=== PATIENT | female | born 1985 | race Caucasian/White ===

== ENCOUNTER 2017-01-11 14:12 | Emergency (ER) | payer OTHER ==
[~2017-01-11] VITALS: Ht 149.9 cm; Wt 58.0 kg
[~2017-01-11 14:12] MED LIST: ALBUAER INH; ALBUAER2 INH
[2017-01-11 14:15] VITALS: TEMP 36.8; Ht 149.9 cm; Wt 58.0 kg
[2017-01-11] MEDS ORDERED: KETOROLAC TROMETHAMINE 60 MG/2 ML VIAL IM STA (14:29)
--- NOTE | 2017-01-11 14:35 | EMERGENCY ROOM VISIT NOTE ---
History First contact with patient: 14:20 Chief Complaint: BACK PAIN Stated Complaint: SEVERE BACK PAIN History of Present Illness The patient is a 31 year old female who presents to the Emergency Room with complaints of severe back pain x "a couple days". The patient states a few days ago, she again experiencing dysuria, urinary hesitancy, and blood. She states she is also experiencing severe back pain, worse on the right side and radiating into her abdomen. The patient does report a history of UTIs with similar pain, however she is concerned that she could have a kidney stone. She states she is noticing some blood in her urine. The patient denies any recent injury. The pain makes it difficult for her to get comfortable. She has been taking 800 mg ibuprofen every 6 hours and Tylenol every 4 hours, with no relief of her symptoms. The patient states she has not had any fever, nausea, vomiting , diarrhea, or constipation. She has been experiencing chills. The patient's last menstrual period was 2 months ago. She states she had a D&C and ablation completed in October. The patient states the pain began spontaneously, and seems to be worse at night. She is having difficulty getting comfortable. Review of Systems A complete 10 point review of systems was reviewed with the patient with pertinent positives and negatives as per history of present illness. All else were negative. Social History Smoking Status: Current Every Day Smoker Smokeless Tobacco Use: No Alcohol Use: none Drug Use: none Housing Status: lives with family Current/Historical Medications Scheduled Albuterol Hfa (Ventolin Hfa), 2-4 PUFFS INH Q6H Sulfa/Trimethoprim (Bactrim Ds 800MG/160MG), 1 TAB PO BID Scheduled PRN Albuterol Sulfate (Proventil Hfa), 2 PUFFS INH Q4 PRN for SOB/Wheezing Allergies Flexeril, penicillin, tramadol Physical Exam Vital Signs Date Time Temp Pulse Resp B/P (MAP) Pulse Ox O2 Delivery O2 Flow Rate FiO2 01/11/17 15:53 80 16 121/69 99 Room Air 01/11/17 14:15 36.8 86 18 146/95 98 Room Air Physical Exam VITALS: Vitals are noted on the nurse's note and reviewed by myself. Vital signs stable. GENERAL: This is a 31-year-old white female, in no acute distress, nondiaphoretic, well-developed well-nourished. SKIN: The skin was without rashes, erythema, edema, or bruising. There is no tenting of the skin. Capillary reflex less than 2 seconds. HEAD: Normocephalic atraumatic. EARS: External auditory canals clear, tympanic membranes pearly hays without erythema or effusion bilaterally. EYES: Pupils equal round and reactive to light and accommodation. Conjunctivae without injection, sclerae without icterus. Extraocular movements intact. NOSE: Patent, turbinates without inflammation or discharge. No sinus tenderness. MOUTH: Mucous membranes moist. Tonsils are not enlarged. Pharynx without erythema or exudate. Uvula midline. Airway patent. Tongue does not deviate. NECK: Supple without nuchal rigidity. No lymphadenopathy. No thyromegaly. Cervical spine is nontender. No JVD. HEART: Regular rate and rhythm without murmurs gallops or rubs. LUNGS: Clear to auscultation bilaterally without wheezes, rales or rhonchi. No dullness to percussion. No retractions or accessory muscle use. ABDOMEN: Positive bowel sounds x 4. Normal tympanic percussion. Tenderness noted in the right lower quadrant. Otherwise, the abdomen was soft, without masses or organomegaly. Wallace sign negative. No guarding or rebound tenderness. Positive CVA tenderness on the right. MUSCULOSKELETAL: No muscle atrophy, erythema, or edema noted. Full range of motion without joint tenderness in all extremities. No tenderness to palpation. Normal gait. Strength 5/5 throughout. Negative straight leg raise. NEURO: Patient was alert and oriented to person place and time. Normal sensation to light and sharp touch. Deep tendon reflexes 2+ throughout. No focal neurological deficits. Medical Decision & Procedures ER Provider Diagnostic Interpretation: Urinalysis was positive for trace blood, +1 protein. +1 WBC. There were no nitrites or ketones. Urine test was negative. RADIOLOGY: KUB CLINICAL HISTORY: Right flank pain. COMPARISON STUDY: None. FINDINGS: Pelvic calcifications likely reflect phleboliths. No urinary calculi are identified. Bowel gas pattern is normal. IMPRESSION: 1. No evidence for a bowel obstruction. 2. No urinary calculi identified. Electronically signed by: Bro Barajas M.D. 01/11/2017 3:34 PM Dictated Date/Time: 01/11/2017 3:33 PM ABD/PELVIS WITHOUT FOR STONE CLINICAL HISTORY: 31 years-old Female presenting with right flank pain. TECHNIQUE: Multidetector CT of the abdomen and pelvis was performed without the use of intravenous contrast. IV contrast: None. A dose lowering technique was used consistent with the principles of ALARA (as low as reasonably achievable). COMPARISON: None. CT DOSE (mGy.cm): The estimated cumulative dose is 413.65 mGycm. FINDINGS: Special Educator topogram: Unremarkable. Lung bases: Minimal dependent changes likely atelectasis. Normal heart size. Trace pericardial effusion. No pleural effusion. Liver: Normal morphology. Normal density. Biliary: No gross biliary ductal dilatation allowing for noncontrast technique. Normal gallbladder. Pancreas: Normal noncontrast appearance. Spleen: Normal noncontrast appearance. Adrenal glands: Normal noncontrast appearance. Kidneys and ureters: Normal noncontrast appearance. No nephrolithiasis. No hydronephrosis. Normal ureters. Bladder: Mild circumferential bladder wall thickening. Pelvic organs: Normal noncontrast appearance. Bowel: Normal appendix. No bowel obstruction. Peritoneal cavity: No free fluid or intraperitoneal gas. Minimal retroperitoneal infiltration in the periaortic region, possibly numerous tiny lymph nodes. Lymph nodes: No gross lymphadenopathy allowing for noncontrast technique. Vasculature: Normal noncontrast appearance. Few left pelvic phleboliths. Abdominal wall: Normal. Musculoskeletal: Normal. IMPRESSION: 1. Mild circumference of bladder wall thickening suggest cystitis. Correlate with urinalysis. 2. No nephrolithiasis or hydronephrosis. Electronically signed by: Michael Mc M.D. 01/11/2017 4:25 PM Dictated Date/Time: 01/11/2017 4:17 PM Laboratory Results Test 01/11/17 14:58 Urine Color YELLOW Urine Appearance CLEAR (CLEAR) Urine pH 7.0 (4.5-7.5) Urine Specific [place] 1.010 (1.000-1.030) Urine Protein NEG (NEG) Urine Glucose (UA) NEG (NEG) Urine Ketones NEG (NEG) Urine Occult Blood NEG (NEG) Urine Nitrite NEG (NEG) Urine Bilirubin NEG (NEG) Urine Urobilinogen NEG (NEG) Urine Leukocyte Esterase TRACE (NEG) Urine WBC (Auto) 1-5 /hpf (0-5) Urine RBC (Auto) 0-4 /hpf (0-4) Urine Hyaline Casts (Auto) 0 /lpf (0-5) Urine Epithelial Cells (Auto) >30 /lpf (0-5) Urine Bacteria (Auto) NEG (NEG) Medications Administered Medications (Trade) Dose Ordered Sig/Duke Route Start Time Stop Time Status Last Admin Dose Admin Ketorolac Tromethamine (Toradol Inj) 60 mg NOW STAT IM 01/11/17 14:29 01/11/17 14:31 DC 01/11/17 14:53 60 MG Medical Decision The patient was seen and evaluated as above. She presents today with severe, colicky back pain. She states this is been ongoing for a few days. The patient does have a history of urinary tract infection, however has not experienced pain this severe. She is concerned for possible stone. She has been taking Tylenol and ibuprofen without relief of her pain. The patient is also experiencing dysuria, urinary hesitancy, and hematuria. She is afebrile, without nausea or vomiting. She states the pain begins in the right flank and radiates into the right lower quadrant of the abdomen. Urinalysis was positive for hematuria and white blood cells. Urine test was negative. KUB was negative for stone. Because the patient does not have a history of stones, we did elect to perform a CT scan to look for stone. CT scan was negative for stone, but did show suspicion for acute cystitis. While in the ED, the patient was given IM Toradol. She did appear much more comfortable after this medication. She states it did help her pain, but not very much. I discussed the findings with the patient at bedside. Prior to discharge, she did request several times for pain medication. [facility] the [facility] narcotic fill history, and did no that she recently had a prescription for Percocet which was written on 01/05/2017 for 14 days. When asked about this, the patient states "that does not be me because I did not have any pain medicine." The patient states she does not live locally and she lives in [place], so she does not believe that the prescription was written for her. I did verify the name and date of , and did look through the patient's records to verify her previous addresses. One address didn't match up , however no other addresses in [facility] were the same. I did print off the report and took it to the patient at bedside. I asked her to verify any other addresses or prescriptions, and she states that this does appear to be her. When asked again, the patient states she did recently receive a prescription for Percocet. She states before that, she had gotten a prescription for cough medication due to bronchitis. On the first of this month, she states she got a prescription for Percocet due to surgery she had. I advised the patient at this time that we will not give her any pain medication, and she states "are you sure you can just give me something for tonight". I told her no, and offered her a prescription for parity. The patient states she has a prescription at home, and she will take what she has at home. I discussed with her proper treatment for urinary tract infection with antibiotics. Discharge instructions were reviewed and the patient was discharged home in good condition. Differential diagnosis: nephrolithiasis, musculoskeletal pain, hydronephrosis, pyelonephritis, ovarian cyst, ovarian torsion, UTI, malignancy, and others. The patient did leave without discharge instructions after she was told she was not getting narcotics and she was to wait for discharge instructions by [facility] Drug Monitoring Program Search Results: patient reviewed within database, see additional documentation Drug Monitoring Findings: Please see MDM. The patient has had 23 prescriptions from 8 prescribers, filled at 5 different pharmacies. She has paid privately 7 times. She also has medicaid and commercial insurances listed. There are 5 different addresses on PDMP, none of which match the address we have on file here in the ED for the patient, however, one matches an address given a few years ago. I did ask the patient directly if the addresses are hers, and she states some of them are. It does appear that she has been using all 5 addresses for prescriptions, based on PDMP ID within the past year. When asked about the findings, the patient is hesitant to admit that this is her, and states she does not know what some of the prescriptions were for. Medication Reconcilliation Current Medication List: was personally reviewed by me Blood Pressure Screening Patient's blood pressure: Elevated blood pressure Blood pressure disposition: Elevated BP felt to be situational Impression Primary Impression: Acute cystitis Departure Information Dispostion Home / Self-Care Condition GOOD Prescriptions Sulfa/Trimethoprim (Bactrim Ds 800MG/160MG) Tab 1 TAB PO BID for 7 Days, #14 TAB Prov: Wilfred, Kina Arellano PA-C 01/11/17 Referrals No Doctor, Assigned (PCP) Patient Instructions ED UTI Cystitis Female, My [facility] Additional Instructions You have been treated in the Emergency Department for a Urinary Tract Infection (UTI). You have been prescribed Bactrim to be taken twice daily for 7 days. This is an antibiotic. All antibiotics have the potential to cause diarrhea. Stop this medication and contact a medical provider if you were to develop any significant adverse side effects including: wheezing, shortness of breath, passing out, vomiting, or a diffuse rash. Always take antibiotics as directed and COMPLETE the ENTIRE course regardless of the improvement of your symptoms. You can take the Pyridium you have at home to be taken as prescribed. This medicine will help with the urinary symptoms that you have been experiencing. Be aware that Pyridium may turn your urine a red-orange or brown color. This effect is harmless. You may use the narcotic pain medication you have at home. As discussed, you were recently given a prescription for 14 days worth of Percocet on 01/05/17. As discussed, this should still be active, so I will not prescribe you more narcotics. Drink plenty of water and stay well hydrated. You may consider cranberry juice, as this may help. As with any trip to the Emergency Department, you should follow-up with your Primary Care Provider from today's visit. Return to the emergency department if your symptoms persist despite treatment plan outlined above or if the following symptoms occur: increased fevers, chills , low back pain, nausea/vomiting, or blood in your urine. Problem Qualifiers Primary Impression: Acute cystitis Hematuria presence: with hematuria Qualified Codes: N30.01 - Acute cystitis with hematuria
[2017-01-11 15:27] LABS: URINE APPEARANCE CLEAR (CLEAR); URINE BILIRUBIN NEG (NEG); URINE COLOR YELLOW; URINE EPITHELIAL CELL AUTO >30 /lpf (0-5); URINE NITRITE NEG (NEG); UROBILINOGEN NEG (NEG); ZZUR CULT IF INDIC CLEAN CATCH NO
[2017-01-11 15:30] LABS: MANUAL MICROSCOPIC REQUIRED? NO; REVIEW REQ? NO
--- NOTE | 2017-01-11 15:35 | DIAGNOSTIC IMAGING REPORT ---
KUB CLINICAL HISTORY: Right flank pain. COMPARISON STUDY: None. FINDINGS: Pelvic calcifications likely reflect phleboliths. No urinary calculi are identified. Bowel gas pattern is normal. IMPRESSION: 1. No evidence for a bowel obstruction. 2. No urinary calculi identified. Electronically signed by: Bro Barajas M.D. 01/11/2017 3:34 PM Dictated Date/Time: 01/11/2017 3:33 PM
[2017-01-11] MEDS ORDERED: VNTHFA/IN INH (15:50)
[2017-01-11] MEDS ORDERED: ALBUAER INH (15:50)
[2017-01-11 15:53] VITALS: BP 121/69; PULSE 80; O2SAT 99
--- NOTE | 2017-01-11 16:26 | DIAGNOSTIC IMAGING REPORT ---
ABD/PELVIS WITHOUT FOR STONE CLINICAL HISTORY: 31 years-old Female presenting with right flank pain. TECHNIQUE: Multidetector CT of the abdomen and pelvis was performed without the use of intravenous contrast. IV contrast: None. A dose lowering technique was used consistent with the principles of ALARA (as low as reasonably achievable). COMPARISON: None. CT DOSE (mGy.cm): The estimated cumulative dose is 413.65 mGycm. FINDINGS: Neonatal Doctor topogram: Unremarkable. Lung bases: Minimal dependent changes likely atelectasis. Normal heart size. Trace pericardial effusion. No pleural effusion. Liver: Normal morphology. Normal density. Biliary: No gross biliary ductal dilatation allowing for noncontrast technique. Normal gallbladder. Pancreas: Normal noncontrast appearance. Spleen: Normal noncontrast appearance. Adrenal glands: Normal noncontrast appearance. Kidneys and ureters: Normal noncontrast appearance. No nephrolithiasis. No hydronephrosis. Normal ureters. Bladder: Mild circumferential bladder wall thickening. Pelvic organs: Normal noncontrast appearance. Bowel: Normal appendix. No bowel obstruction. Peritoneal cavity: No free fluid or intraperitoneal gas. Minimal retroperitoneal infiltration in the periaortic region, possibly numerous tiny lymph nodes. Lymph nodes: No gross lymphadenopathy allowing for noncontrast technique. Vasculature: Normal noncontrast appearance. Few left pelvic phleboliths. Abdominal wall: Normal. Musculoskeletal: Normal. IMPRESSION: 1. Mild circumference of bladder wall thickening suggest cystitis. Correlate with urinalysis. 2. No nephrolithiasis or hydronephrosis. Electronically signed by: Michael Mc M.D. 01/11/2017 4:25 PM Dictated Date/Time: 01/11/2017 4:17 PM
[2017-01-11] MEDS ORDERED: SULF800T23 PO (17:05)
== END 2017-01-11 17:10 | disposition home or self-care (01) ==
LOC: C.EDB 14:15 → C.EDA 17:10
DX: N30.01 Acute cystitis with hematuria (principal); F17.200 Nicotine dependence, unspecified, uncomplicated; Z87.440 Personal history of urinary (tract) infections